=== PATIENT | female | born 1990 | race Caucasian/White ===

== ENCOUNTER 2018-02-10 15:45 | Emergency (ER) | payer OTHER ==
[2018-02-10 15:52] VITALS: BP 96/58
--- NOTE | 2018-02-10 16:06 | EDPHY ---
H & P Stated Complaint: Vomiting this am;diarrhea;seen @, told "hi WBC";recent travel overseas Time Seen by Provider: 02/10/18 15:50 HPI/ROS: CHIEF COMPLAINT: Vomiting and diarrhea HISTORY OF PRESENT ILLNESS: 27-year-old female presents with vomiting and diarrhea. Onset of vomiting at 4:00 a.m., associated with multiple episodes of diarrhea. She was seen at urgent care this morning and given 2 L of normal saline and IV Zofran. She currently feels much better. Urgent care called her just prior to arrival because of leukocytosis. She was sent here because urgent care was concerned about the elevated white blood cell count. She denies abdominal pain or fever. She recently traveled to the [facility]. REVIEW OF SYSTEMS: complete 10 point ROS negative except at noted in the HPI - Personal History LMP (Females 10-55): 8-14 Days Ago Current Tetanus Diphtheria and Acellular Pertussis (TDAP): Yes - Medical/Surgical History Other PMH: healthy - Social History Smoking Status: Never smoked - Physical Exam Exam: General Appearance: Alert, pleasant Eyes: Pupils equal and round, no conjunctival pallor or injection ENT, Mouth: Mucous membranes moist Neck: Normal inspection Respiratory: Lungs are clear to auscultation Cardiovascular: Regular rate and rhythm Gastrointestinal: Abdomen is soft and nontender Neurological: A&O, nonfocal, normal gait Skin: Warm and dry Extremities: Normal inspection Psychiatric: Mood and affect normal Constitutional: Initial Vital Signs Temperature (C) 37.2 C 02/10/18 15:49 Heart Rate 92 02/10/18 15:49 Respiratory Rate 18 02/10/18 15:49 Blood Pressure 96/58 L 02/10/18 15:49 O2 Sat (%) 98 02/10/18 15:49 O2 Delivery Mode Room Air Allergies/Adverse Reactions: No Known Allergies Allergy (Unverified 02/10/18 15:52) Home Medications: Medication Instructions Recorded Ondansetron Odt [Zofran Odt 4 mg 4 mg PO Q4 02/10/18 (*)] Medical Decision Making ED Course/Re-evaluation: Pt feeling much better after IVF/Zofran at urgent care. did not send CBC results to the ED and unfortunately the urgent care clinic has closed. Discussed with the patient, she understands that with blood cell count is usually high with an acute illness. She was given the option of redrawing the CBC or calling urgent care in the morning and obtaining the results. She is feeling much better, so would like to go home and will call urgent care tomorrow for the results. She will have a repeat CBC when she is feeling better or she will call me tomorrow with any concerns. Differential Diagnosis: Differential diagnosis includes though it is not limited to appendicitis, cholecystitis, diverticulitis, pyelonephritis, bowel perforation, small bowel obstruction. Departure - Departure Disposition: Home, Routine, Self-Care Clinical Impression: Acute gastroenteritis Condition: Good Instructions: Gastroenteritis (ED) Additional Instructions: 1. Clear liquids for 24 hours. 2. Advance diet as tolerated. I suggest the BRAT diet to start: bananas, rice, applesauce and toast. 3. Return for worsening symptoms, persistent vomiting, abdominal pain, any concerns. 4. Dr. Aguila will be in the ED tomorrow from 3-11pm. If you have any questions about your blood results, please call me. Referrals: Merlin Lunsford MD [Medical Doctor] - 2-3 days, if not improved
== END 2018-02-10 16:21 | disposition home or self-care (01) ==
DX: K52.9 Noninfective gastroenteritis and colitis, unspecified (principal)